=== PATIENT | female | born 1965 | race American Indian/Alaskan Native ===

== ENCOUNTER 2019-11-28 21:33 | Emergency (ER) | payer SELFPAY ==
[2019-11-28 23:01] VITALS: BP 144/82
--- NOTE | 2019-11-28 23:53 | XRay Report ---
CHEST 1 VIEW INDICATION: chest pain and sob COMPARISON: 10/19/2012 FINDINGS: Support devices: None Heart: Normal Lungs/Pleura: No acute pulmonary or pleural findings. IMPRESSION: 1. No acute disease and no interval change. Signer Name: Flako Kline MD Signed: 11/28/2019 11:49 PM Workstation Name: [id number]
[2019-11-29] MEDS ORDERED: ACETAMINOPHEN 325 MG TAB PO STA
[2019-11-29] MEDS ORDERED: KETOROLAC 30 MG/1 ML INJ IM ONE
--- NOTE | 2019-11-29 00:01 | Emergency Department Report ---
ED Chest Pain HPI - General Chief Complaint: Chest Pain Stated Complaint: CHEST PAIN PUI?: No Time Seen by Provider: 11/28/19 23:49 Source: patient, EMS ( EMS documentation not available at time of chart dictation ), RN notes reviewed, old records reviewed Mode of arrival: Stretcher Limitations: No Limitations - History of Present Illness Initial Comments: The patient was evaluated in the emergency department for symptoms described in the history of present illness. He/she was evaluated in the context of the global COVID-19 pandemic, which necessitated consideration that the patient might be at risk for infection with the virus that causes COVID-19. Institutional protocols and algorithms that pertain to the evaluation of patients at risk for COVID-19 are in a state of rapid change based on information released by regulatory bodies including the CDC and federal and state organizations. These policies and algorithms were followed during the patient's care in the emergency department. Please note that these policies, procedures and recommendations changed on a rapid basis. During the entire history and physical examination, I am chaperoned by planer setter Osvaldo Felipe The patient is a 54-year-old female. She is not known to myself previously. She has a history of obesity, hypertension, and chronic musculoskeletal back pain and left lower extremity pain, secondary to a work-related accident from August of this year, and she wears a left knee immobilizer/brace. She is brought to the hospital today by emergency medical services with a complaint of chest wall pain. The chest wall pain is central, between her breasts, and radiates up and down her anterior chest wall. It does not radiate to the back, arms or neck. It has been present for 3 days. It is described as throbbing and aching, increases with palpation, range of motion, and deep inspiration. She denies severe headache, neck pain, abdominal pain, new or different exertional shortness of breath, posterior leg pain, posterior leg swelling, r ecent surgery. She states that she is not , and she denies oral contraceptive use. There is no family history of DVT or pulmonary embolism that she is aware. No recent aspirin consumption that she is aware of. MD Complaint: chest pain -: days(s) (3) Onset: other (Symptoms are intermittent) Pain Location: substernal Pain Radiation: other (As per history of present illness) Severity: mild Severity scale (0 -10): 0 Quality: aching Consistency: intermittent Improves With: rest Worsens With: palpation Context: other (Patient states that she was informed by the hotel she is staying in that there may be a mold problem) Aspirin use within the Past 7 Days: (0) No - Related Data On Oral Contraceptives: No Previous Rx's Medication Instructions Recorded Last Taken Type amLODIPine 5 mg PO DAILY #30 tab 01/04/13 Unknown Rx Albuterol Sulfate [Ventolin HFA] 2 puff IH Q4H PRN #1 hfa.aer.ad 02/13/15 Unknown Rx Ibuprofen [Motrin 800 MG tab] 800 mg PO Q8HR PRN #21 tablet 09/03/15 Unknown Rx Lisinopril/Hydrochlorothiazide 1 tab PO QDAY #30 tablet 09/03/15 Unknown Rx [Zestoretic 10-12.5 mg] Acetaminophen [Non-Aspirin Extra 500 mg PO Q6HR PRN #30 tablet 11/29/19 Unknown Rx Strength] Aspirin [Aspirin BABY CHEW TAB] 81 mg PO QDAY #30 tab.chew 11/29/19 Unknown Rx Ibuprofen [Motrin] 600 mg PO Q8H PRN #30 tablet 11/29/19 Unknown Rx Allergies Allergy/AdvReac Type Severity Reaction Status Date / Time No Known Allergies Allergy Unverified 07/10/14 10:58 Heart Score - HEART Score History: Slightly suspicious EKG: Non-specific Age: 45-65 Risk factors: 1-2 risk factors Troponin: < normal limit HEART Score: 3 - Critical Actions Critical Actions: 0-3 pts:0.9-1.7%risk of adverse cardiac event.Candidate for discharge ED Review of Systems ROS: Stated complaint: CHEST PAIN Other details as noted in HPI Constitutional: denies: fever Eyes: denies: vision change ENT: denies: congestion Respiratory: denies: cough Cardiovascular: chest pain Gastrointestinal: denies: nausea, vomiting Musculoskeletal: arthralgia, myalgia Psychiatric: anxiety Hematological/Lymphatic: denies: easy bleeding ED Past Medical Hx - Past Medical History Previous Medical History?: Yes Hx Hypertension: Yes Hx Asthma: Yes Additional medical history: Migraine, Left knee injury - Surgical History Past Surgical History?: No - Social History Smoking Status: Never Smoker Substance Use Type: None - Medications Home Medications: Home Medications Medication Instructions Recorded Confirmed Last Taken Type amLODIPine 5 mg PO DAILY #30 tab 01/04/13 Unknown Rx Albuterol Sulfate [Ventolin HFA] 2 puff IH Q4H PRN #1 hfa.aer.ad 02/13/15 Unknown Rx Ibuprofen [Motrin 800 MG tab] 800 mg PO Q8HR PRN #21 tablet 09/03/15 Unknown Rx Lisinopril/Hydrochlorothiazide 1 tab PO QDAY #30 tablet 09/03/15 Unknown Rx [Zestoretic 10-12.5 mg] Acetaminophen [Non-Aspirin Extra 500 mg PO Q6HR PRN #30 tablet 11/29/19 Unknown Rx Strength] Aspirin [Aspirin BABY CHEW TAB] 81 mg PO QDAY #30 tab.chew 11/29/19 Unknown Rx Ibuprofen [Motrin] 600 mg PO Q8H PRN #30 tablet 11/29/19 Unknown Rx ED Physical Exam - General Limitations: No Limitations General appearance: alert, obese - Head Head exam: Present: atraumatic, normocephalic - Eye Eye exam: Present: normal appearance, EOMI. Absent: nystagmus - ENT ENT exam: Present: normal exam, normal orophraynx, mucous membranes moist, normal external ear exam - Neck Neck exam: Present: normal inspection, full ROM. Absent: tenderness, meningismus - Respiratory Respiratory exam: Present: normal lung sounds bilaterally, chest wall ten derness, other (Chaperoned by planer setter A Dial). Absent: respiratory distress, wheezes, rales, rhonchi, stridor - Cardiovascular Cardiovascular Exam: Present: regular rate, normal rhythm, normal heart sounds. Absent: bradycardia, tachycardia, irregular rhythm, systolic murmur, diastolic murmur, rubs, gallop - GI/Abdominal GI/Abdominal exam: Present: soft. Absent: distended, tenderness, guarding, rebound, rigid, pulsatile mass - Extremities Exam Extremities exam: Present: normal inspection, full ROM, other (2+ pulses noted in the bilateral upper and lower extremities. There is no long bony tenderness. The muscular compartments are soft.) - Back Exam Back exam: Present: normal inspection, full ROM, paraspinal tenderness. Absent: tenderness, CVA tenderness (R), CVA tenderness (L), vertebral tenderness - Neurological Exam Neurological exam: Present: alert, oriented X3, other (No facial droop. Tongue midline. Extraocular movements intact bilaterally. Facial sensation intact to light touch in V1, V2, V3 distribution bilaterally. 5 and a 5 strength in 4 extremities. Sensation intact to light touch in 4 extremities.) - Psychiatric Psychiatric exam: Present: anxious - Skin Skin exam: Present: warm, dry, intact, normal color. Absent: rash ED Course Vital Signs 11/28/19 11/28/19 22:48 23:01 Temperature 98.3 F Pulse Rate 78 Respiratory 16 Rate Blood Pressure 144/82 O2 Sat by Pulse 96 Oximetry - Reevaluation(s) Reevaluation #1: 11/29/19 00:08 Differential diagnosis, including but not limited to: Costochondritis, pneumonia, pneumonitis, GERD, gastritis, hiatal hernia, pneumonia, coronary artery disease, pulmonary embolism Assessment and plan: 44-year-old female with reproducible chest wall pain for 3 days, in the context of possible mold exposure at a hotel that she is currently staying at. She is not currently tachycardic, tachypneic or hypoxic, however, she is ambulatory with crutches, and has a left lower extremity knee immobilizer present for weeks/month secondary to a chronic extremity injury. EKG also shows a left axis deviation with a left anterior fascicular block. Given 3 days of symptoms, with reproducible chest wall pain, I do find the patient to be low risk for major adverse cardiac event as per the heart score, in addition, given that symptoms have been present for 72 hours, as per the [employer] clinical policy, myocardial infarction may be ruled out with 1 set of troponins/cardiac enzymes if symptoms present for greater than 8 hours. X-ray of the chest negative for acute findings, laboratory studies are ordered, as per this institutions policy/protocol/procedures, patient's facesheet has been transmitted/faxed to [facility] cardiology, if laboratory studies are unremarkable and patient does not have a change in her clinical status, she is suitable to follow-up with an outpatient elevator repairer apprentice or primary care doctor to complete a cardiac risk ratification. She does not have any wheezing at this time, is phonating normally, saturating at 99% on room air, patient advised that if she is concerned about mold in her current hotel room, she may benefit from alternative housing arrangements Reevaluation #2: 11/29/19 00:57 Troponin negative. D-dimer negative. Vital signs unremarkable. Patient medicated appropriately. We have provided the patient with resources for outpatient follow-up. She is medically suitable for discharge at this point time. ADITHYA score - Adithya Score Age > 65: (0) No Aspirin use within the Past 7 Days: (0) No 3 or more CAD Risk Factors: (0) No 2 or more Angina events in past 24 hrs: (0) No Known CAD with more than 50% Stenosis: (0) No Elevated Cardiac Markers: (0) No ST Deviation Greater than 0.5mm: (0) No ADITHYA Score: 0 ED Medical Decision Making - Lab Data Result diagrams: 11/29/19 00:05 11/29/19 00:05 Vital Signs 11/28/19 11/28/19 22:48 23:01 Temperature 98.3 F Pulse Rate 78 Respiratory 16 Rate Blood Pressure 144/82 O2 Sat by Pulse 96 Oximetry Lab Results 11/29/19 11/29/19 11/29/19 Range/Units 00:05 00:05 00:05 WBC 4.6 (4.5-11.0) K/mm3 RBC 4.49 (3.65-5.03) M/mm3 Hgb 12.6 (10.1-14.3) gm/dl Hct 37.9 (30.3-42.9) % MCV 84 (79-97) fl MCH 28 (28-32) pg MCHC 33 (30-34) % RDW 15.2 (13.2-15.2) % Plt Count 211 (140-440) K/mm3 PT 13.0 (12.2-14.9) Sec. INR 0.96 (0.87-1.13) Sodium 137 (137-145) mmol/L Potassium 3.9 (3.6-5.0) mmol/L Chloride 99.8 (98-107) mmol/L Carbon Dioxide 25 (22-30) mmol/L Anion Gap 16 mmol/L BUN 9 (7-17) mg/dL Creatinine 1.1 (0.6-1.2) mg/dL Estimated GFR > 60 ml/min BUN/Creatinine Ratio 8 % Glucose 95 (65-100) mg/dL Calcium 8.4 (8.4-10.2) mg/dL Magnesium 2.30 (1.7-2.3) mg/dL Total Creatine Kinase 85 (30-135) units/L Troponin T < 0.010 (0.00-0.029) ng/mL - EKG Data -: EKG Interpreted by Me EKG shows normal: sinus rhythm - EKG Data When compared to previous EKG there are: previous EKG unavailable 11/29/19 00:08 There is no prior EKG available for comparison. Sinus rhythm, 80 bpm, left axis deviation, left anterior fascicular block, QTC is prolonged, the EKG is not a STEMI. - Radiology Data Radiology results: pending, report reviewed, image reviewed X-ray of the chest, negative for acute findings Critical care attestation.: If time is entered above; I have spent that time in minutes in the direct care of this critically ill patient, excluding procedure time. ED Disposition Clinical Impression: Chest wall pain, Pleuritic chest pain Disposition: TO HOME OR SELFCARE Is pt being admited?: No Does the pt Need Aspirin: No Condition: Stable Instructions: Costochondritis (ED) Additional Instructions: Rest, avoid heavy lifting, and avoid strenuous physical activities. Take the prescribed pain medications as needed and directed. Recommend that patient avoid rooms/houses/hotels with mold, if she is concerned that mold is exacerbating her symptoms. We recommend that the patient follow-up with a primary care doctor or elevator repairer apprentice within the next 3 to 5 days. For the patient's convenience, her facesheet/contact information has been transmitted to [facility] cardiology, and they should be calling the patient with an appointment to arrange close outpatient follow-up. However, we do recommend that the patient also contact this group to assure close outpatient follow-up. Please return to the emergency room right away with new pain, worsened pain, migration of pain, projectile vomiting, change in mental status, confusion, inability to tolerate liquid feeds, new, worsened or different symptoms not present on the initial emergency room evaluation. Patient may alternate ice packs and heat packs as needed for her various musculoskeletal pains. In addition, the patient would benefit from physical therapy/rehabilitation to help improve her muscular pain. A primary care doctor can further coordinate this as an outpatient peer Prescriptions: Aspirin [Aspirin BABY CHEW TAB] 81 mg PO QDAY #30 tab.chew Ibuprofen [Motrin] 600 mg PO Q8H PRN #30 tablet PRN Reason: Pain Acetaminophen [Non-Aspirin Extra Strength] 500 mg PO Q6HR PRN #30 tablet PRN Reason: Pain , Severe (7-10) Referrals: REYNA FLANAGAN MD [Staff Physician] - 3-5 Days MARCO TRAN MD [Staff Physician] - 3-[address] [facility] [Provider Group] - 3-5 Days [facility] [Provider Group] - 3-5 Days
[2019-11-29 00:24] LABS: Hematocrit 37.9 % (30.3-42.9); Hemoglobin 12.6 gm/dl (10.1-14.3); Mean Corpuscular HGB Conc 33 % (30-34); Mean Corpuscular Volume 84 fl (79-97); Platelet Count 211 K/mm3 (140-440); Red Blood Count 4.49 M/mm3 (3.65-5.03); Red Cell Distribution Width 15.2 % (13.2-15.2)
[2019-11-29 00:41] LABS: INR 0.96 (0.87-1.13)
[2019-11-29 00:45] LABS: BUN/Creatinine Ratio 8; Blood Urea Nitrogen 9 mg/dL (7-17); Calcium 8.4 mg/dL (8.4-10.2); Hemolysis Index 2
== END 2019-11-29 01:04 | disposition home or self-care (01) ==
LOC: ED 21:33
DX: R09.1 Pleurisy (principal); I10 Essential (primary) hypertension; J45.909 Unspecified asthma, uncomplicated; Z79.899 Other long term (current) drug therapy
CPT/HCPCS: 36415; 71045; 80048; 82550; 83735; 84484; 85027; 85379; 85610; 93005; 96372; 99284; J1885